=== PATIENT | female | born 1960 | race Caucasian/White ===

== ENCOUNTER 2024-10-22 09:55 | Emergency (ER) | payer OTHER, SELFPAY ==
--- NOTE | ~2024-10-22 | CT_ITS ---
EXAMINATION: CT brain and CT cervical spine without contrast. CLINICAL INDICATION: Head trauma. COMPARISON: None. TECHNIQUE: 5 mm thin axial and reformatted 2 mm thin sagittal and coronal images of brain were obtained without contrast. Subsequently. 3 mm axial and reformatted 2 mm thin sagittal and coronal images of cervical spine were obtained. Low dose parameter were utilized for imaging such as automated exposure control, adjustment of MA and or KV according to patient techniques and standardized protocols and use of iterative reconstruction technique Dose 1079 mGy/cm. FINDINGS: Brain: There is bilateral subdural hematoma without any frontal lobe hemorrhagic contusion or edema. There is no calvarial fractures seen. Rest of the brain appears unremarkable. The lateral ventricles are enlarged but symmetrical. The joseph to white matter differentiation is maintained normal. Bilateral paranasal sinuses and mastoid air cells are well-aerated. No scalp soft tissue abnormality seen. The optic globes, optic nerve and periorbital soft tissues are normal. Cervical spine: There is reversal of cervical lordosis. The vertebral heights and alignment is normal. There is grade 1 anterolisthesis C3 over C4 and grade 1 anterolisthesis C4 over C6. There is mild degenerative disc changes C3-4, C4-5, C5-6 and C6/7 disc levels with posterior spondylosis. The craniovertebral junction is normal. There is rotational subluxation C1-C2 alignment which could be secondary to spasm or positional. There is no visible acute fracture noted. Moderate left facet joint arthropathy C2-3, C3-4, C4-5 disc levels as noted. No lytic or sclerotic process seen. The prevertebral and paravertebral soft tissues are normal. The lung apices are clear. CT/CT head/brain wo IV con IMPRESSION: Bilateral frontal acute subdural hematoma without hemorrhagic parenchymal contusion or fracture. Reversal of cervical lordosis with rotational subluxation C1-C2 alignment. Listhesis C3-4 and C5-6 disc levels with. There is degenerative disc changes as described above with posterior spondylosis. No visible acute fracture or dislocation seen. Results were immediately called to Dr. Robyn Abreu in the ER by phone at 10:50 AM. Electronically signed by: Lance Llanos MD 10/22/2024 10:56 AM [facility]
--- NOTE | ~2024-10-22 | CT_ITS ---
EXAMINATION: CT brain and CT cervical spine without contrast. CLINICAL INDICATION: Head trauma. COMPARISON: None. TECHNIQUE: 5 mm thin axial and reformatted 2 mm thin sagittal and coronal images of brain were obtained without contrast. Subsequently. 3 mm axial and reformatted 2 mm thin sagittal and coronal images of cervical spine were obtained. Low dose parameter were utilized for imaging such as automated exposure control, adjustment of MA and or KV according to patient techniques and standardized protocols and use of iterative reconstruction technique Dose 1079 mGy/cm. FINDINGS: Brain: There is bilateral subdural hematoma without any frontal lobe hemorrhagic contusion or edema. There is no calvarial fractures seen. Rest of the brain appears unremarkable. The lateral ventricles are enlarged but symmetrical. The joseph to white matter differentiation is maintained normal. Bilateral paranasal sinuses and mastoid air cells are well-aerated. No scalp soft tissue abnormality seen. The optic globes, optic nerve and periorbital soft tissues are normal. Cervical spine: There is reversal of cervical lordosis. The vertebral heights and alignment is normal. There is grade 1 anterolisthesis C3 over C4 and grade 1 anterolisthesis C4 over C6. There is mild degenerative disc changes C3-4, C4-5, C5-6 and C6/7 disc levels with posterior spondylosis. The craniovertebral junction is normal. There is rotational subluxation C1-C2 alignment which could be secondary to spasm or positional. There is no visible acute fracture noted. Moderate left facet joint arthropathy C2-3, C3-4, C4-5 disc levels as noted. No lytic or sclerotic process seen. The prevertebral and paravertebral soft tissues are normal. The lung apices are clear. CT/CT cervical spine wo IV con IMPRESSION: Bilateral frontal acute subdural hematoma without hemorrhagic parenchymal contusion or fracture. Reversal of cervical lordosis with rotational subluxation C1-C2 alignment. Listhesis C3-4 and C5-6 disc levels with. There is degenerative disc changes as described above with posterior spondylosis. No visible acute fracture or dislocation seen. Results were immediately called to Dr. Robyn Abreu in the ER by phone at 10:50 AM. Electronically signed by: Lance Llanos MD 10/22/2024 10:56 AM [facility]
[2024-10-22 10:00] VITALS: BP 170/82; PULSE 71; RESP 20; O2SAT 96; BMI 27.4
--- NOTE | 2024-10-22 10:00 | ECG_ITS ---
Test Reason : SEIZURE Blood Pressure : / mmHG Vent. Rate : 079 BPM Atrial Rate : 079 BPM P-R Int : 144 ms QRS Dur : 104 ms QT Int : 384 ms P-R-T Axes : 046 -32 054 degrees QTc Int : 440 ms Normal sinus rhythm Left axis deviation Abnormal ECG No previous ECGs available Referred By: Joelle Abreu Electronically Signed By:NGOC GARDNER MD
[2024-10-22] MEDS: LORazepam 2 MG/ML VIAL IVPUSH (10:14)
--- NOTE | 2024-10-22 10:19 | ED_ITS ---
HPI - Seizure General Chief Complaint: Seizure Stated Complaint: FALL,SEIZURE,UNRESPONSIVE,VITALS STABLE PER EMS Source: family and EMS Mode of arrival: EMS Limitations: altered mental status History of Present Illness ED Provider: EL HPI Narrative: 63 yo female with PMH of MG on prednisone and pyridostigmine not on blood thinners with recent leg weakness and falls daughter heard the fall today notes she was confused initially c/o hitting back of her head no vomiting. Then seemed to come around but got sleepier with 1 min GTC seizure by family on couch. EMS noted she was answering to voice initially but EMS noted another GTC 30 sec seizure. BS was normal. no hypoxia. On arrival to the ED she was moving all extremities pushing our hands away and localizing to pain. No clonus. Sent to stat head CT MD complaint: seizure (fall ) Onset (ago): minute(s) (30 ) Description of Episode: loss of consciousness, tonic-clonic movement, bladder incontinence and post-event confusion Duration of episode: 1 -: minutes(s) Witnessed: Yes - by EMS Trauma: Yes Seizure History: No Place: Home Possible Precipitating Event: head injury Associated symptoms: denies other symptoms Treatments prior to arrival: none Related Data Allergies Allergy/AdvReac Type Severity Reaction Status Date / Time Unable to Assess Allergy Verified 10/22/24 10:06 Review of Systems 2 Review of Systems: ROS unable to be obtained due to altered mental status [facility] Past Medical History Attestation statement: The following information was validated with the patient. Source: old records reviewed Medical History (Updated 10/22/24 @ 10:37 by Joelle Abreu DO) Myasthenia gravis Social History Social History (Updated 10/22/24 @ 10:29 by Joelle Abreu DO) Patient Tobacco Use Status: Never used Tobacco Advance Directives: No Advance Directives Information Provided: Yes Physical Exam 2 Vital Signs: Vital Signs: Last Vital Signs Temp 98.5 F 10/22/24 10:36 Pulse 73 10/22/24 10:43 Resp 16 10/22/24 10:43 BP 150/73 H 10/22/24 10:43 Pulse Ox 93 10/22/24 10:43 O2 Del Method Room Air 10/22/24 10:43 BMI result Body Mass Index 27.4 Appearance: somnolent and postictal with agitation, removing medical devices. Mod acute distress. Eyes: Pupils pinpoint then 1 mm after arrival 4mm reactive ENT: Pharynx normal. no obvious hematoma felt Neck: Normal inspection. Neck supple. CVS: Normal heart rate and rhythm. Pulses normal. Respiratory: No respiratory distress. Breath sounds normal. Abdomen: Soft and nontender. Skin: Skin warm and dry. Normal skin color. Normal skin turgor. Extremities: No lower extremity edema. Neuro: no clonus, localizing to pain, making sounds, incontinent of urine GCS 11 on arrival Course Course Course Narrative: frequent BP checks head of bed elevated attempting to place collar but she is refusing transfer line at [facility] 1056am called Reevaluation(s) Reevaluation #1: no shift seen on CT head repeat calls to radiology to read scan Reevaluation #2: spoke to trauma Kamine Cat 1 to ED 1112am Medications Administered Discontinued Medications Generic Name Dose Route Start Last Admin Trade Name Freq PRN Reason Stop Dose Admin Levetiracetam 1,500 mg in 100 mls @ 400 mls/hr 10/22/24 10:03 10/22/24 10:38 Keppra IV 10/22/24 10:17 400 mls/hr ONCE ONE Administration Lorazepam 2 mg 10/22/24 10:01 10/22/24 10:14 Lorazepam 2 Mg/Ml Vial IVPUSH 10/22/24 10:02 2 mg ONCE ONE Administration Medical Decision Making Medical Decision Making [facility] Narrative: 63 yo female with PMH of MG on prednisone and pyridostigmine not on blood thinners here with c/o fall told family she hit her head then seizure x 2 with incontinence on arrival postictal and agitated, I ordered 2mg ativan and keppra 1500mg. She will get labs, CT scan head and cspine attempt collar placement, continue assessing airway. at bedside aware of plan and concern for ICH and seizures. Differential Diagnosis Differential Diagnoses: The differential diagnosis associated with the presentation includes seizure, ICH, trauma Admission/Observation Consideration of admission/observation: Escalation of care including admission/observation considered transfer given ICH and seizure Consult Healthcare Provider Management of the patient was discussed with: Health Science Specialist Lab Data [facility] Lab Attestation statement: I reviewed the patient's lab results. 10/22/24 11:05 10/22/24 Unknown Labs: Lab Results 10/22/24 10/22/24 10/22/24 Range/Units 10:00 10:48 11:05 WBC 12.2 H (4.8-10.8) X10*3/uL RBC 4.44 (4.20-5.50) X10*6/uL Hgb 14.4 (12.0-16.0) g/dl Hct 42.8 (37.0-47.0) % MCV 96.4 (80.0-98.0) fL MCH 32.4 (27.0-33.0) pg MCHC 33.6 (31.0-35.0) g/dl RDW 12.4 (11.0-16.0) % Plt Count 251 (160-400) X10*3/uL MPV 10.6 (9.4-12.3) fL VBG pH 7.33 (7.32-7.43) VBG pCO2 55 mmHg VBG pO2 115 mmHg VBG HCO3 29 H (22-26) mmol/L VBG O2 Saturation 100.0 % VBG Base Excess 2.7 mmol/L Sodium (135-145) mmol/L Potassium (3.3-5.1) mmol/L Chloride (96-108) mmol/L Carbon Dioxide (22-29) mmol/L Anion Gap (12-20) BUN (9-16) mg/dL Creatinine (0.5-1.4) mg/dL Estim Creat Clear Calc Estimated GFR Random Glucose (60-115) mg/dL Lactic Acid 4.9 H* (0.5-2.0) mmol/L Calcium (8.4-10.2) mg/dL Magnesium (1.6-2.6) mg/dL Total Bilirubin (0.0-1.0) mg/dL Direct Bilirubin (0.0-0.5) mg/dL AST (5-31) U/L ALT (0-31) U/L Alkaline Phosphatase (39-117) U/L Ammonia 46 (13-55) umol/L Troponin I High Sens < 2.7 (<3.5-17.0) ng/L C-Reactive Protein (< or = 0.50) mg/dL B-Natriuretic Peptide 19 (<100) pg/mL Total Protein (6.5-8.0) g/dL Albumin (3.5-5.0) g/dL Lipase (8-78) U/L TSH 6.75 H (0.32-4.0) uIU/mL Ethyl Alcohol < 10 mg/dL 10/22/24 Range/Units Unknown WBC (4.8-10.8) X10*3/uL RBC (4.20-5.50) X10*6/uL Hgb (12.0-16.0) g/dl Hct (37.0-47.0) % MCV (80.0-98.0) fL MCH (27.0-33.0) pg MCHC (31.0-35.0) g/dl RDW (11.0-16.0) % Plt Count (160-400) X10*3/uL MPV (9.4-12.3) fL VBG pH (7.32-7.43) VBG pCO2 mmHg VBG pO2 mmHg VBG HCO3 (22-26) mmol/L VBG O2 Saturation % VBG Base Excess mmol/L Sodium 138 (135-145) mmol/L Potassium 4.0 (3.3-5.1) mmol/L Chloride 106 (96-108) mmol/L Carbon Dioxide 24 (22-29) mmol/L Anion Gap 12 (12-20) BUN 16 (9-16) mg/dL Creatinine 0.74 (0.5-1.4) mg/dL Estim Creat Clear Calc 78.7 Estimated GFR > 60 Random Glucose 113 (60-115) mg/dL Lactic Acid (0.5-2.0) mmol/L Calcium 9.1 (8.4-10.2) mg/dL Magnesium 2.1 (1.6-2.6) mg/dL Total Bilirubin 0.3 (0.0-1.0) mg/dL Direct Bilirubin 0.1 (0.0-0.5) mg/dL AST 52 H (5-31) U/L ALT 53 H (0-31) U/L Alkaline Phosphatase 84 (39-117) U/L Ammonia (13-55) umol/L Troponin I High Sens (<3.5-17.0) ng/L C-Reactive Protein 0.21 (< or = 0.50) mg/dL B-Natriuretic Peptide (<100) pg/mL Total Protein 6.6 (6.5-8.0) g/dL Albumin 4.0 (3.5-5.0) g/dL Lipase 42 (8-78) U/L TSH (0.32-4.0) uIU/mL Ethyl Alcohol mg/dL Independent Interpretation I performed an independent interpretation of an: EKG and CT Scan (bilateral frontal acute SDH) Interpretation: Rate: 79 Rhythm: NSR [place]: left, LVH Normal P waves. Normal YOUNG. Normal QRS complex. ST T wave : no NERISSA, inverted t waves V1 qTC:440 prior studies: no acute ischemia The study has been interpreted contemporaneously by me. . CLINICAL INDICATION: Head trauma. COMPARISON: None. TECHNIQUE: 5 mm thin axial and reformatted 2 mm thin sagittal and coronal images of brain were obtained without contrast. Subsequently. 3 mm axial and reformatted 2 mm thin sagittal and coronal images of cervical spine were obtained. Low dose parameter were utilized for imaging such as automated exposure control, adjustment of MA and or KV according to patient techniques and standardized protocols and use of iterative reconstruction technique Dose 1079 mGy/cm. FINDINGS: Brain: There is bilateral subdural hematoma without any frontal lobe hemorrhagic contusion or edema. There is no calvarial fractures seen. Rest of the brain appears unremarkable. The lateral ventricles are enlarged but symmetrical. The joseph to white matter differentiation is maintained normal. Bilateral paranasal sinuses and mastoid air cells are well-aerated. No scalp soft tissue abnormality seen. The optic globes, optic nerve and periorbital soft tissues are normal. Cervical spine: There is reversal of cervical lordosis. The vertebral heights and alignment is normal. There is grade 1 anterolisthesis C3 over C4 and grade 1 anterolisthesis C4 over C6. There is mild degenerative disc changes C3-4, C4-5, C5-6 and C6/7 disc levels with posterior spondylosis. The craniovertebral junction is normal. There is rotational subluxation C1-C2 alignment which could be secondary to spasm or positional. There is no visible acute fracture noted. Moderate left facet joint arthropathy C2-3, C3-4, C4-5 disc levels as noted. No lytic or sclerotic process seen. The prevertebral and paravertebral soft tissues are normal. The lung apices are clear. CT/CT head/brain wo IV con IMPRESSION: Bilateral frontal acute subdural hematoma without hemorrhagic parenchymal contusion or fracture. Reversal of cervical lordosis with rotational subluxation C1-C2 alignment. Listhesis C3-4 and C5-6 disc levels with. There is degenerative disc changes as described above with posterior spondylosis. No visible acute fracture or dislocation seen. Radiology Impression Discussion of test interpretation with radiology: I discussed test interpretation with the radiologist and I have reviewed the radiologist's reading. Radiologist Impression: 1054, mild bilateral acute SDH no shift no skull or cervical spine fracture Independent Historian Clinical information obtained from an independent historian. History obtained from or confirmed by: Spouse and EMS Critical Care Time Critical Care Time Critical Care Time: Yes Total Critical Care Time: 45 Attestation: repeat assessments, family discussion, transfer, IV ativan I attest to this time spent taking care of the patient Discharge Plan Discharge Clinical Impression: Generalized seizure, Intracranial hemorrhage Patient Disposition: [facility] Hospital Transfer Details: [facility] Print Language: [place] Citizen
[2024-10-22 10:36] VITALS: BP 111/70; PULSE 72; RESP 16; TEMP 36.9; O2SAT 98
[2024-10-22] MEDS: levETIRAcetam in NaCl (iso-os) 1,500 MG/100 ML PIGGYBACK 400 MG IV (10:38)
[2024-10-22 10:42] VITALS: BP 150/80; PULSE 72; O2SAT 95
[2024-10-22 10:43] VITALS: BP 150/73; PULSE 73; RESP 16; O2SAT 93
[2024-10-22 10:49] LABS: B Type Natriuretic Peptide 19 pg/mL (<100)
--- OUTSIDE RECORDS SUMMARY | 2024-10-22 10:51 | XMS_ITS ---
[facility] [place] Address [address] [place] [address] Care Team Providers [employer] Name Role Phone Tutu Gonzales MD Primary Care Provider Unavailblade e Black, Maria Del Carmen Unavailable [phone] Allergies Allergen (clinical drug ingredient) Drug/Non Drug Allergy documented on EMR Reaction Allergy Type Onset Date Status Penicillin itchy,swelling Drug Allergy A ctive REASON FOR VISIT Painful thick toenails which are aggrevated by shoes and causes difficulty standing/walking Medications Medication SIG (Take, Route, Frequency, Duration) Notes Start Date End Date Status Econazole Nitrate 1 % APPLY TO AFFECTED AREA ONCE A DAY EXTERNALLY for 30 Not-Taking Vitamin E Unknown Vitamin D Unknown Nitro-Bid 2 % as directed Transdermal apply bid for 30 days 09/30/2014 Not-Taking Nitro-Bid 2 % as directed Transdermal 09/30/2014 Not-Taking Clotrimazole-Betamethaso ne 1-0.05 % 1 application to affected area Externally Twice a day to affected areas on feet for 30 days 07/19/2018 Not-Taking Ciclopirox Olamine 0.77 % 1 application to affected area Externally to feet Twice a day for 30 days Active Augmentin 500-125 MG 1 tablet Orally Twi ce a day for 10 day(s) Not-Taking Lamisil 250 250 MG 1 Tab Oral Daily for 90 06/13/2013 Not-Taking Econazole Nitrate 1 % 1 application to affected area Externally Once a day for 30 days 06/10/2016 Not-Taking Levothyroxine Sodium 88mcg 1 tablet on an empty stomach in the morning Orally Once a day for 30 day(s) Active Lisinopril 2 a day Active Social History Tobacco Use: Social History Observation Description Date Details (start date - stop date) Never Smoker NA - NA Tobacco Use/Smoking Question Answer Notes Are you a: nonsmoker Additional Findings: Tobacco Non-User Current no n-smoker Alcohol Screen Question Answer Notes Did you have a drink containing alcohol in the p ast year? No Points 0 Interpretation Negative Tobacco use other than smoking: Question Answer Notes Are you an other tobacco user? No Vital Signs Height 5ft 5in in 07/30/2024 Weight 150 lbs 07/30/2024 BMI 24.96 kg/m2 07/30/2024 Blood pressure systolic 110 mm Hg 07/30/20 Blood pressure diastolic 78 mm Hg 024 Procedures Procedure Date Ordered Date Performed Result Body Sit e 00131-QLGIHEH NAIL, 6 OR MORE 07/30/2024 N/A Encounters Encounter Location Date Provider Diagnosis [facility] [place] [address] [place] [address] 07/30/2024 Maria Del Carmen Morgan Tinea unguium B35.1 ; Pain in left toe(s) M79.675 and Pain in right toe(s) M79.674 Assessments Encounter Date Diagnosis (ICD Code) Assessment Notes Treatment Notes Treatment Clinical Notes Section Notes 07/30/2024 Tinea unguium (ICD-10 - B35.1) 07/30/2024 Pain in left toe(s) (ICD-10 - M79.675) 07/30/2024 Pain in right toe(s) (ICD-10 - M79.674) Plan Of Treatment Pending Test Test Name Order Date 41125-WNEDLUI NAIL, 6 OR MORE 07/30/2024 Next Appt Details Follow Up: prn, Reason: Provider Name:Maria Del Carmen Avila Eddie , 01/28/2025 08:00:00 AM, [address] [place] [address], [id number], Procedure Notes * Category Sub-Category Detail Notes Debride Nail 6-10 Nail debridement Performance o f this nail treatment by a nonprofessional would put this patients foot and overall health at risk. Therefore, nail debridement was performed extensively to reduce/remove overall nail length, girth, thickness, subungual debris, and necrotic tissue, by manual and/or electrical means through the use of a nail nipper and/or dremel-type air grinder, to a more viable healthy nail plate or bed tissue 6-10. Silver nitrate used for any petechial bleeding as necessary. Definitive antifungal treatment options have been reviewed and discussed with the patient. The patient chooses, no pharmaceutical tx - 10712 Progress Notes * Hanh LESTER EDOB:1960 (63 yo F)Acc No.[id number]:07/30/2024 Progress Note Patient:?Hanh Lester Provider:?Maria Del Carmen Morgan DPM :1960???Age:63 Y???Sex:Female D ate:07/30/2024 Address:[address] [place] [address] [address], [id number] Pcp:Tutu Gonzales MD Subjective: * Chief Complaints: * ???Painful thick toenails wh ich are aggrevated by shoes and causes difficulty standing/walking * HPI: ???Painful Nails:?Pt States Last PCP Visit:?Date:?03/23/2024 ?Treatments:?Formula 7 , relates adherence to recom tx.? * ROS:?General/Constitutional:?Nausea?denies.?Vomiting?denies.?Hunger Thirst?denies.?Loss appetite?denies, denies.?Chills?denies, denies.?Fatigue?denies.?Fever?denies, denies.?Night Sweats?denies.?Unexplained weight loss?denies.?Unexplained weight gain?denies.?Ophthalmologic:?Blurred vision?denies.?Red eye?denies.?HEENTM:?Dentures?denies.?Dizziness?denies.?Glasses/contacts?admits.?Retinopathy?de nies.?Blurred/double vision?denies.?TMJ?denies.?Discharge/drainage?denies.?Implants?denies.?Sore throat?denies.?Dental implants?denies.?Hard of hearing ?denies.?Difficulty chewing/swallowing/speaking?denies.?Nose bleeds?denies.?Sore mouth?denies, denies.?Swollen glands?denies.?Respiratory:?On Oxygen?denies.?Pneumonia/pleurisy?denies.?Bronchitis?denies.?Emphysema?denies.?C oughing?denies, denies.?Cough blood?denies.?Shortness of breath?denies, denies.?Wheezing?denies, denies.?Cardiovascular:?Pacemaker?denies.?MVP?denies.?WPW?denies.?CHF?denies.?Heart attack?denies.?Septal defect?denies.?Rapid beat?denies.?Chest pain ?denies, denies.?Atrial Fib.?denies, denies.?Murmur/Palpitations?denies.?Gastrointestinal:?Hemorrhoids?denies.?Stomach/Abdominal pain?denies, denies.?Dark blood stool?denies.?Irritable bowel ?denies.?Constipation?denies.?Diarrhea?denies, denies.?Vomiting?denies.?Hematology:?Swelling?denies.?Clots?denies.?Varicose Veins?denies.?Bruising?denies.?Bleeding problem?denies.?Genitourinary:?Blood urine?denies, denies.?Frequent/Painfu/urination/bladder control?denies, denies.?Kidney stones?denies.?Infection (UTI)?denies.?Nephropathy?denies.?sex trans dis (STD)?denies.?Prostate?denies.?Musculoskeletal:?Hammertoes?denies.?Bunions?denies.?Back Pain?denies.?Muscle Cramps/ Resting?denies.?Muscle cramps / walking?denies.?Generalized aches and pains?denies.?Painful joints?denies.?Swollen joints?denies.?Weakness?denies.?Podiatric:?Comments?See HPI for comments.?Integ.:?Edmond?denies.?Scars?denies.?Corns/calluses?denies.?Ingrown nails?denies.?Painful nails?admits.?Open Sores?denies.?Itching?denies.?Rashes?admits.?Neurologic:?Difficulty sleeping?denies.?Brain disorder?denies.?Numbness?denies.?Balance trouble?denies.?Confusion?denies, denies.?Fainting/blackouts?denies.?Headache?denies.?Tingling?denies.?Tremors?den ies.? * Medical History:? * Surgical History:?Biopsy on back colonoscopy * Hospitalization/Major Diagno stic Procedure:?Denies Past Hospitalization * Family History:?Mother: dece ased, Cancer, diagnosed with Other malignant neoplasm of unspecified site.?Father: alive, diagnosed with Unspecified essential hypertension, Unspecified heart disease.?Siblings: Brother- Cancer, diagnosed with Other malignant neoplasm of unspecified site.? * Social History:?Tobacco Use:?Tobacco Use/Smoking?Are you a:?nonsmoker ?Additional Findings: Tobacco Non-User?Current non-smoker ?Tobacco use other than smoking?Are you an other tobacco user??No ???Drugs/Alcohol:?Drugs?Have you used drugs other than those for medical reasons in the past 12 months??No ?Alcohol Screen?Did you have a drink containing alcohol in the past year??No ?Points?0 ?Interpretation?Negative ???Miscellaneous:?Caffeine: yes, 1 cup per week. ?Children: yes, 2. ?Exercise: yes, swimming, bike riding, yoga, weightlifting, walking, running. ?Marital status: . ?Occupation: [employer]. * Medications:?TakingLisinopri nishant , Notes: 2 a dayLevothyroxine Sodium 88mcg Tablet 1 tablet on an empty stomach in the morning Orally Once a dayCiclopirox Olamine 0.77 % Cream 1 application to affected area Externally to feet Twice a dayTaking Lisinopril , Notes: 2 a dayTaking Levothyroxine Sodium 88mcg Tablet 1 tablet on an empty stomach in the morning Orally Once a dayTaking Ciclopirox Olamine 0.77 % Cream 1 application to affected area Externally to feet Twice a dayNot-Taking/PRNClotrimazole-Betamethasone 1-0.05 % Cream 1 application to affected area Externally Twice a day to affected areas on feetEconazole Nitrate 1 % Cream 1 application to affected area Externally Once a dayLamisil 250 250 MG Tablet 1 Tab Oral DailyAugmentin 500-125 MG Tablet 1 tablet Orally Twice a dayEconazole Nitrate 1 % Cream APPLY TO AFFECTED AREA ONCE A DAY EXTERNALLY Nitro-Bid 2 % Ointment as directed Transdermal Nitro-Bid 2 % Ointment as directed Transdermal apply bidNot-Taking/PRN Clotrimazole-Betamethasone 1-0.05 % Cream 1 application to affected area Externally Twice a day to affected areas on feetNot-Taking/PRN Econazole Nitrate 1 % Cream 1 application to affected area Externally Once a dayNot-Taking/PRN Lamisil 250 250 MG Tablet 1 Tab Oral DailyNot-Taking/PRN Augmentin 500-125 MG Tablet 1 tablet Orally Twice a dayNot-Taking/PRN Econazole Nitrate 1 % Cream APPLY TO AFFECTED AREA ONCE A DAY EXTERNALLY Not-Taking/PRN Nitro-Bid 2 % Ointment as directed Transdermal Not-Taking/PRN Nitro-Bid 2 % Ointment as directed Transdermal apply bidUnknownVitamin D Vitamin E Medication List reviewed and reconciled with the patientUnknown Vitamin D Unknown Vitamin E Medication List reviewed and reconciled with the patient * Allergies:?Penicillin: itchy ,swellingyes[Allergies Verified] Objective: * Vitals:?Ht: 5ft 5in, Wt:150, BMI:24.96, Shoe size: 8.5-9, BP:110/78 mm Hg, Ht- cm: 165.1 cm, Wt-k.04 kg. * Examination: ???General Examination: ?GENERAL APPEARANCE:?alert, well hydrated, in no distress , good attention to hygiene.?Vascular: ?DP PULSES(B):?2/4, B/L.?PT PULSES(B):?2/4, B/L.?Dermatologic: ?SKIN FINDINGS:?Skin exam reveals normal color, texture, elasticity, and turgor. There are no masses, nor excrescences. The interspaces are clear, B/L.?Nails: ?NAILS are:?Elongated, overgrown, dystrophic, greater than 3mm thick, discolored and friable with crumbly malodorous subungual debris, with pain on palpation 1-5 Left foot , T5 , proximal clearing of nail _20? percent.? Assessment: * Assessment: 1.?Tinea unguium - B35.1?2.? Pain in left toe(s) - M79.675?3.?Pain in right toe(s) - M79.674? Plan: * Treatment: * Procedures:?Debride Nail 6-10:?Nail debridement?Performance of this nail treatment by a nonprofessional would put this patients foot and overall health at risk. Therefore, nail debridement was performed extensively to reduce/remove overall nail length, girth, thickness, subungual debris, and necrotic tissue, by manual and/or electrical means through the use of a nail nipper and/or dremel-type air grinder, to a more viable healthy nail plate or bed tissue 6-10. Silver nitrate used for any petechial bleeding as necessary. Definitive antifungal treatment options have been reviewed and discussed with the patient. The patient chooses, no pharmaceutical tx - 56256.? * Procedure Codes:?36426 DEBRI DE NAIL, 6 OR MORE * Follow Up:?prn * Images: * Sign off status: Completed true * Provider:?Maria Del Carmen Morgan DPM Date:?2023 Generated for Alma shelby/Surjit/eTroslynsmitting on:?10/22/2024 10:51 AM EST History and Physical Notes * HPI (History of Present Illness) Category Sub-Category Detail Notes Category Not es Painful Nails Treatments: Formula 7 , relates adheren ce to recom tx Pt States Last PCP Visit: Date:: 03/23/2024 Examination Category Sub-Category Detail Notes Category Not es Dermatologic SKIN FINDINGS: Skin exam reveal s normal color, texture, elasticity, and turgor. There are no masses, nor excrescences. The interspaces are clear, B/L General Examination GENERAL APPEARANCE: alert, w ell hydrated, in no distress , good attention to hygiene Vascular DP PULSES (B): 2/4, B/L PT PULSES (B): 2/4, B/L Nails NAILS are: Elongated, overg rown, dystrophic, greater than 3mm thick, discolored and friable with crumbly malodorous subungual debris, with pain on palpation 1-5 Left foot , T5 , proximal clearing of nail _20 percent
--- OUTSIDE RECORDS SUMMARY | 2024-10-22 10:51 | XMS_ITS | Patient Health Record ---
Author Organization [facility] Ileana satinder French Address [address] [address] Care Team Providers Care Customer Expert Name Role Phone Tutu Gonzales MD Primary Care Provider Lashon Morgan, Maria Del Carmen Unavailable [phone] Allergies Allergen (clinical drug ingredient) Drug/Non Drug Allergy documented on EMR Reaction Allergy Type Onset Date Status Penicillin itchy,swelling Drug Allergy A ctive Reason For Referral No Information Medications Medication SIG (Take, Route, Frequency, Duration) Notes Start Date End Date Status Clotrimazole-Betamethaso ne 1-0.05 % 1 application to affected area Externally Twice a day to affected areas on feet for 30 days 07/19/2018 Not-Taking Ciclopirox Olamine 0.77 % 1 application to affected area Externally to feet Twice a day for 30 days Active Levothyroxine Sodium 88mcg 1 tablet on an empty stomach in the morning Orally Once a day for 30 day(s) Active Econazole Nitrate 1 % APPLY TO AFFECTED AREA ONCE A DAY EXTERNALLY for 30 Not-Taking Augmentin 500-125 MG 1 tablet Orally Twi ce a day for 10 day(s) Not-Taking Lamisil 250 250 MG 1 Tab Oral Daily for 90 06/13/2013 Not-Taking Econazole Nitrate 1 % 1 application to affected area Externally Once a day for 30 days 06/10/2016 Not-Taking Lisinopril 2 a day Active Vitamin E Unknown Vitamin D Unknown Nitro-Bid 2 % as directed Transdermal apply bid for 30 days 09/30/2014 Not-Taking Nitro-Bid 2 % as directed Transdermal 09/30/2014 Not-Taking Social History Tobacco Use: Social History Observation [...] Are you an other tobacco user? No Problems Problem Type SNOMED Code ICD Code Onset Dates Problem Status W/U Status Risk Notes Problem Acquired hallux valgus (21157775) Hallux valgus (acquired), left foot (M20.12) Active confirmed Problem Acquired hallux valgus (52459845) Hallux valgus (acquired), right foot (M20.11) Active confirmed Vital Signs Blood pressure diastolic 78 mm Hg 07/30/2024 Height 5ft 5in in 07/30/2024 Blood pressure systolic 110 mm Hg 07/30/2024 Weight 150 lbs 07/30/2024 BMI 24.96 kg/m2 07/30/2024 Procedures Procedure Date Ordered Date Performed Result Body Sit e 89211-MGLNWTE NAIL, 6 OR MORE 02/13/2024 N/A 64196-ENRUDVT NAIL, 6 OR MORE 07/30/2024 N/A Encounters Encounter Location Date Provider Diagnosis [address] [address] 02/13/2024 Maria Del Carmen Black Tinea unguium B35.1 ; Tinea pedis B35.3 ; Pain in left toe(s) M79.675 and Pain in right toe(s) M79.[address] [address] 07/30/2024 Maria Del Carmen Black Tinea unguium B35.1 ; Pain in left toe(s) M79.675 and Pain in right toe(s) M79.[address] [address] 02/13/2024 Maria Del Carmen Black [address] [address] 07/30/2024 Maria Del Carmen Black Assessments Encounter Date Diagnosis (ICD Code) Assessment Notes Treatment Notes Treatment Clinical Notes Section Notes 02/13/2024 Tinea unguium (ICD-10 - B35.1) 02/13/2024 Tinea pedis (ICD-10 - B35.3) 07/30/2024 Tinea unguium (ICD-10 - B35.1) 07/30/2024 Pain in left toe(s) (ICD-10 - M79.675) 07/30/2024 Pain in right toe(s) (ICD-10 - M79.674) 02/13/2024 Pain in left toe(s) (ICD-10 - M79.675) 02/13/2024 Pain in right toe(s) (ICD-10 - M79.674) Plan Of Treatment Pending Test Test Name Order Date X ray : Foot, right 2V 06/10/2016 *Liver Function Test (LFT) 02/12/2019 *Liver Function Test (LFT) 06/13/2013 X ray : Foot, right 3V 05/06/2016 99206-AWKRWEM NAIL, 6 OR MORE 08/08/2023 69541-IHUCVVI NAIL, 6 OR MORE 02/13/2024 80273-LLXPNFX NAIL, 6 OR MORE 07/30/2024 03268-ZSEFECR NAIL, 1-5 01/24/2023 Next Appt Details Provider Name:Maria Del Carmen Morgan , 01/28/2025 08:00:00 AM, [address] [place], [address], Insurance Providers Payer Name Payer Address Payer Phone Subscriber Number Group Number Insured Name Patient Relationship to Insured Coverage Start Date Coverage End Date [place] [address] [place] [phone] [id number] Hanh Sweeney Self - patient is the insured Medical (General) History Medical History History ICD Code thyroid disorder Chicken pox Surgical History Surgery Date(Month/Year) Biopsy on back colonoscopy
--- OUTSIDE RECORDS SUMMARY | 2024-10-22 10:51 | XMS_ITS | Data Portability ---
Author Organization [facility] Address [address] [place] [address] Care Team Providers Care Cement Finisher Helper Name Role Phone OCTAVIO HAYNES Primary Care Provider OCTAVIO HAYNES Referring Provider [phone] Assessment No assessment recorded. Plan of Treatment Reminders Order Date Submit Date Provider Last Modified By Organization Details Last Modified Time Details Appointments None recorded. Lab None recorded. Referral None recorded. Procedures None recorded. Surgeries None recorded. Imaging None recorded. Medication Orders ketoconazo le 2 % topical cream 2018 019 INTERFACE [id number], [address] [place], [address], 9 12:35:55 Patient TargetsNo targets recorded. Patient Instructions Encounter Date Encounter Id Patient Instructions Last Modified By Organization Details Last Modified Time 09/19/2019 [id number] toenail fungus: care instructions Not available 09/19/2019 12:35:53 athlete's foot: care instructions Not available 09/19/2019 12:35:53 Hanh is a {{58# }} year old {{female* male}} patient who {{presents to the office today for evaluation of* returns to the office for follow up of }} L foot athletes foot infection and fungal toe nails. Discussed with patient today the various options of treating fungal nails. This includes the following: regular trimming of thickened nails, removal of nail to see if a normal nail will grow back, topical antifungal (advised there is about 20% improvement rate), oral antifungal medication (80% improvement) and laser treatment (40% improvement rate). We also discussed the recurrence rate of fungus to the nails and the need to sterilize shoes and take care of any tinea pedis to prevent recurrence of the problem once healed. Previously a sample of the nail was sent for evaluation to determine if there is a fungus and it was with Dr Duncan. She does not want to do oral medication. At this time patient has decided upon laser. For the tinea pedis I reviewed with patient the cause and the treatment options consisting of oral or topical antifungals. If topical treatment is done reminded patient that treatment needs to continue 3 weeks past the time that it appears that the symptoms are resolved since there is a high rate of recurrence. As well reviewed that sometimes there can be a superimposed dermatitis that needs a steroid cream. At this time recommended topical ketoconazole nightly. Hanh will return to the office {{as needed as soon as possible in 2 weeks in 4 weeks in 3 months*}} for f/u of nail growth and improvement after course of lunula. (once weekly for 4 weeks, then once monthly for an additional 2 months). She lives in [facility] so we will try to stack appts as best as possible. Not available 09/19/2019 12:37:42 12/10/2019 [id number] toenail fungus: care instructions Not available 12/10/2019 09:01:58 athlete's foot: care instructions Not available 12/10/2019 09:01:58 Hanh is a {{59# }} year old {{female* male}} patient who {{presents to the office today for evaluation of returns to the office for follow up of *}} L foot athletes foot infection and fungal toe nails, with some improvement with lunula treatments x3. Discussed with patient today the various options of treating fungal nails. This includes the following: regular trimming of thickened nails, removal of nail to see if a normal nail will grow back, topical antifungal (advised there is about 20% improvement rate), oral antifungal medication (80% improvement) and laser treatment (40% improvement rate). We also discussed the recurrence rate of fungus to the nails and the need to sterilize shoes and take care of any tinea pedis to prevent recurrence of the problem once healed. She does not want to do oral medication. At this time patient has decided upon laser tune ups and use of formula 7. For the tinea pedis I reviewed with patient the cause and the treatment options consisting of oral or topical antifungals. If topical treatment is done reminded patient that treatment needs to continue 3 weeks past the time that it appears that the symptoms are resolved since there is a high rate of recurrence. As well reviewed that sometimes there can be a superimposed dermatitis that needs a steroid cream. At this time recommended topical ketoconazole nightly as needed. Hanh will return to the office {{ in 4 months# as needed as soon as possible in 2 weeks in 4 weeks in 3 months}} for f/u of nail growth and improvement after course of lunula. (once weekly for 4 weeks, then once monthly for an additional 2 months). She lives in [facility] so we will try to stack appts as best as possible. Not available 12/10/2019 09:01:58 Reason for Referral None Reported. Problems No Known Problems Procedures Surgical History Date Name Laterality Status Provider Name and Address Organization Details Recorded Time 12/10/19 20 Lunula Laser Treatment of Onychomycosis completed Forest Parham, [place]ICRUZ [address], [address], [facility] 12/10/2019 09:01:21 Imaging Results None recorded. Procedure Notes None recorded. Medical Equipment None Reported. Allergies Allergen ID Allergen Name Allergen Category Reaction Reaction Severity Criticality Documentation Date Start Date Code Code System Note Provider Name and Address Organization Details Recorded Time [id number] Medicinal product containin g penicilli n and acting as antibacte rial agent (product) medicatio n itching moderate Not available 09/19/2019 29104 05 SNOMED Not Available Not Available Not Available Medications Name Sig Start Date Stop Date Status Note LastModified by Organization Details LastModified Time doxycycline hyclate 100 mg capsule 09/19 completed Not Available Not Available Not Available levothyroxi ne 100 mcg tablet active Not Available Not Available Not Available econazole 1 % topical cream 09/19 completed Not Available Not Available Not Available ketoconazol e 2 % topical cream APPLY TO THE AFFECTED AREA(S) BY TOPICAL ROUTE ONCE DAILY active Not Available Not Available No t Available Vitals Date Recorded Body height Body mass index (BMI) Body weight Provider Name and Address Organization Details Last Updated DateTime 09/19/2019 165.1 cm 23.3 kg/m2 75620.93 g Bettie Boggs [facility] 09/19/2019 09:59:50 Date Recorded Body height Body mass index (BMI) Body weight Provider Name and Address Organization Details Last Updated DateTime 12/10/2019 165.1 cm 23.3 kg/m2 05645.93 g Heathtayo Malcolm [facility] 12/10/2019 08:40:05 Social History Question Answer Notes LastModified by Organizat ion Details LastModified Time Tobacco Smoking Status Never Smoker Bettie Neelyketan gilbert [facility] 09/19/2019 09:57:24 What Is Your Level Of Alcohol Consumption? None Information not available 09/19/2019 What Is Your Occupation? [employer] Information not available 09/19/2019 What Is Your Shoe Size & Width? 8 1/2 Or 9 M Information not available 09/19/2019 How Much Tobacco Do You Smoke? No Information not available 09/19/2019 Sex: Unknown Functional Status None recorded. Mental Status None recorded. Family History Nothing Reported. Medical History Condition Response High Blood Pressure N Lower Limb amputations N MRSA N Emphysema N Respiratory Disease N Congenital Heart Lesions N Pacemaker N Bleeding Tendency N Deep Vein Thrombosis N Varicose Veins N Arthritis N Blood Disease N Cancer N Chemical Dependency N Stroke N Shortness of Breath N High Cholesterol N Liver Disease N Rheumatoid Arthritis N Foot Deformity N Fibromyalgia N Hepatitis A, B, or C N Ulcer N Kidney Disease N Circulatory Problems N Thyroid Problems Y Psychiatric Care N Anemia N Multiple Sclerosis N Diabetes N Rheumatic Fever N Seizures/Epilepsy N Heart Murmur N Tuberculosis N AIDS/HIV N Low Blood Pressure N Asthma N Epilepsy N Peripheral Vascular Disease N Mitral Valve Prolapse N Heart Disease N Gynecological HistoryNo gynecological history recorded. Obstetrics History GPAL:G 0 P 0 0 0 0 Past Encounters Encounter ID Performer Location Encounter Start Date Encounter Closed Date Diagnosis/Indication Diagnosis SNOMED-CT Code Diagnosis ICD10 Code [id number] Forest Parham DPM Office-[address] [address] 09/19/2019 09:44:15 09/19/2019 11:05:58 Onychomycosis 320046121 B35.1 Tinea pedis 1815018 B35. 3 [id number] Forest Parham DPM Office[facility] [place] [address] [address] 12/10/2019 08:37:45 12/10/2019 09:25:30 Onychomycosis 544185831 B35.1 Tinea pedis 6459390 B35. 3 Health Concerns Section Related Observation LastModified by Organization Detai ls LastModified Time None Recorded Concern Status LastModified by Organization Details LastModified Time None Recorded Advance Directives Directive None Recorded Payers Encounter Date Sequence Insurance Name Policy Number Policy Jaramillo Covered Member ID Jaramillo Member ID Guarantor Name 09/19/2019 1 [facility] [employer] [facility] [id number] Sammy Sweeney [id number] Hanh Sweeney 12/10/2019 1 [facility] [employer] [facility] [id number] Sammy Sweeney [id number] Hanh Sweeney Notes Date Note Type Note Provider Name and Address Organization Details Recorded Time 09/19/2019 text/html Fungal NailsReported bypatient.Location: left Quality:occasional Severity:mild Alleviating Factors:nothing helps Aggravating Factors:cannot identify Associated Symptoms:no weakness; no numbness; no tingling; no swelling; no redness; no warmth; no radiation down leg; no drainageNotes:Deandre gant presents to the office for fungals nails on the left foot. Patient states she has had them for a bout 1.5 years . Patient states she has some pain in the great toe. Patient states she has seen DR. carroll in [place] who offered meds , however patient would prefer no medicine but laser. Forest Parham DPM [address] [address], [place], [address], [facility] 09/19/2019 12:37:56 12/10/2019 text/html Follow Up VisitReported bypatient.Symptoms: improving Previous Therapy:none Previous Injections:none Prior Studies:noneNotes:Julee atkins presents to the office following up on onychomycosis on the left foot. She thinks it has improved but is hard to tell. The great toe seems to have some new growth that looks good but she can not tell with toes 2-5. She also has some swelling and bruising around her right second toe. She does not recall an injury. Some improvement in the big toe nail for sure according to her. Lesser toes she isn't as positive about. Has been sterilizxing her shoes as well. Forest Parham, MARICRUZ [address] [address], [place], [address], [facility] 12/10/2019 09:02:42 OBGyn Episode No OBEpisode recorded.
--- OUTSIDE RECORDS SUMMARY | 2024-10-22 10:51 | XMS_ITS ---
Author Organization [facility] satinder [place] Address [address] [facility] [place] [address] Care Team Providers Care Farm Field Manager Name Role Phone Tutu Gonzales MD Primary Care Provider Maria Del Carmen Parkinson [phone] REASON FOR VISIT buy Formula 7 Encounters Encounter Location Date Provider Diagnosis [facility] [address] [address] [place] [address] 02/13/2024 Maria Del Carmen Morgan Plan Of Treatment Next Appt Details Provider Name:Maria Del Carmen Morgan , 01/28/2025 08:00:00 AM, [address] [facility] [place], [address], Progress Notes * Hanh LESTER EDOB:1960 (63 yo F)Acc No.[id number]:02/13/2024 Patient:?Hanh Lester :1960???Age:63 Y???Sex:Female Address:[address] [facility] [place], [address] * true * Date:? Generated for Isiahi heron/Surjit/eTransmitting on:?10/22/2024 10:51 AM EST
--- OUTSIDE RECORDS SUMMARY | 2024-10-22 10:51 | XMS_ITS ---
Author Organization [facility] satinder [place] Address [address] [facility] [place] [address] Care Team Providers Care Director Content Marketing Name Role Phone Tutu Gonzales MD Primary Care Provider Maria Del Carmen Parkinson [phone] REASON FOR VISIT BUY Formula 7 Encounters Encounter Location Date Provider Diagnosis [facility] [address] [address] [place] [address] 07/30/2024 Maria Del Carmen Morgan Plan Of Treatment Next Appt Details Provider Name:Maria Del Camren Morgan , 01/28/2025 08:00:00 AM, [address] [facility] [place], [address], Progress Notes * Hanh LESTER EDOB:1960 (63 yo F)Acc No.[id number]:07/30/2024 Patient:?Hanh Lester :1960???Age:63 Y???Sex:Female Address:[address] [facility] [place], [address] * true * Date:? Generated for Isiahi heron/Surjit/eTransmitting on:?10/22/2024 10:50 AM EST
[2024-10-22 10:52] LABS: Troponin-I High Sensitivity < 2.7 ng/L (<3.5-17.0)
[2024-10-22 10:53] LABS: Lactic Acid 4.9 mmol/L (0.5-2.0)
[2024-10-22 10:54] LABS: Venous Blood Gas Refer to POC result
[2024-10-22 10:54] LABS: VBG Base Excess 2.7 mmol/L; VBG HCO3 29 mmol/L (22-26); VBG pCO2 55 mmHg; VBG pH 7.33 (7.32-7.43); VBG pO2 115 mmHg
[2024-10-22 10:54] LABS: Ethanol < 10 mg/dL
[2024-10-22 11:04] LABS: TSH reflex Free T4 6.75 uIU/mL (0.32-4.0)
[2024-10-22 11:12] LABS: Basophils Absolute Auto 0.1 X10*3/uL (0.0-0.2); Basophils Percent Auto 0.4 % (0-2); Eosinophils Percent Auto 0.1 % (0-4); Hematocrit 42.8 % (37.0-47.0); Hemoglobin 14.4 g/dl (12.0-16.0); Imm Gran Abs Auto 0.09 X10*3/uL (0.00-0.03); Imm Gran Pct Auto 0.7 % (0.0-0.4); Lymphocytes Absolute Auto 0.6 X10*3/uL (1.2-4.9); MANUAL DIFF FLAG SCAN; Mean Corpuscular HGB Conc 33.6 g/dl (31.0-35.0); Mean Corpuscular Hemoglobin 32.4 pg (27.0-33.0); Mean Corpuscular Volume 96.4 fL (80.0-98.0); Mean Platelet Volume 10.6 fL (9.4-12.3); Monocytes Absolute Auto 0.4 X10*3/uL (0.1-1.2); Monocytes Percent Auto 3.1 % (2-11); Neutrophils Percent Auto 90.7 % (45-73); Platelet Count 251 X10*3/uL (160-400); Red Blood Count 4.44 X10*6/uL (4.20-5.50); Red Cell Distribution Width 12.4 % (11.0-16.0); SCAN SMEAR FLAG 1; White Blood Count 12.2 X10*3/uL (4.8-10.8)
[2024-10-22 11:16] LABS: Alanine Aminotransferase 53 U/L (0-31); Alkaline Phosphatase 84 U/L (39-117); Anion Gap 12 (12-20); Aspartate Amino Transferase 52 U/L (5-31); Bilirubin Direct 0.1 mg/dL (0.0-0.5); Bilirubin Total 0.3 mg/dL (0.0-1.0); Blood Urea Nitrogen 16 mg/dL (9-16); C Reactive Protein 0.21 mg/dL (< or = 0.50); Calcium 9.1 mg/dL (8.4-10.2); Carbon Dioxide 24 mmol/L (22-29); Chloride 106 mmol/L (96-108); Creatinine Clr Calc Pharmacy 78.7; Estimated Glomerular Filt Rate > 60; Glucose Random 113 mg/dL (60-115); Lipase 42 U/L (8-78); Magnesium 2.1 mg/dL (1.6-2.6); Sodium 138 mmol/L (135-145); Total Protein 6.6 g/dL (6.5-8.0)
[2024-10-22 11:16] LABS: Ammonia 46 umol/L (13-55)
--- NOTE | 2024-10-22 11:25 | MHC.EDTECH ---
patient was incontinet of urine clean and change patient put on fresh clean hospital gown and clean linen. nurse aware
[2024-10-22 11:30] LABS: Procalcitonin 0.03 ng/mL
[2024-10-22 11:33] LABS: SLIDE REVIEW VERIFIED
[2024-10-22 11:37] LABS: Free T4 (Free Thyroxine) 1.03 ng/dL (0.71-1.85)
[2024-10-22 11:41] VITALS: BP 101/55; PULSE 74; RESP 19; TEMP 36.8; O2SAT 96
[2024-10-22 12:07] LABS: Influenza A PCR NEGATIVE (Negative); Influenza B PCR NEGATIVE (Negative); Resp Syncy Virus RNA Qual PCR NEGATIVE (Negative); SARS COV2 PCR INHOUSE NEGATIVE (Negative)
[2024-10-22 12:19] LABS: Reflex Lactate? Lactic Acid Added
== END 2024-10-22 11:46 | disposition short-term general hospital (02) ==
PROVIDERS: Emergency Provider Emergency Medicine
DX: S06.309A Unspecified focal traumatic brain injury with loss of consciousness of unspecified duration, initial encounter (principal); W19.XXXA Unspecified fall, initial encounter; Y93.9 Activity, unspecified; Y92.9 Unspecified place or not applicable; Y99.9 Unspecified external cause status; R56.9 Unspecified convulsions; R53.1 Weakness; G70.00 Myasthenia gravis without (acute) exacerbation; R41.0 Disorientation, unspecified; R32 Unspecified urinary incontinence; Z03.818 Encounter for observation for suspected exposure to other biological agents ruled out
CPT/HCPCS: 0241U; 36415; 70450; 72125; 80048; 80076; 80307; 82140; 82803; 83605; 83690; 83735; 83880; 84145; 84439; 84443; 84484; 85025; 86140; 93005; 96374; 96375; 99284; 99285; J1953; J2060

== ENCOUNTER → 2024-10-22 10:00 | Outpatient (BNV) | payer OTHER, SELFPAY | PROVIDERS: Emergency Provider Emergency Medicine; Visit Provider Internal Medicine Cardiovascular Disease | DX: R94.31 Abnormal electrocardiogram [ECG] [EKG] (principal) | CPT/HCPCS: 93010 ==

== ENCOUNTER → 2024-10-22 10:00 | Outpatient (BNV) | payer OTHER, SELFPAY | PROVIDERS: Emergency Provider Emergency Medicine; Visit Provider Radiology Diagnostic Radiology | DX: S06.5X0A Traumatic subdural hemorrhage without loss of consciousness, initial encounter (principal); M50.30 Other cervical disc degeneration, unspecified cervical region | CPT/HCPCS: 70450; 72125 ==